=== PATIENT | female | born 1965 | race Hispanic/Latino ===

== ENCOUNTER 2022-05-06 13:01 | Emergency (ER) | payer MEDICAID ==
[~2022-05-06] VITALS: Ht 165.1 cm; Wt 70.3 kg
[2022-05-06 13:06] VITALS: BP 131/74
[2022-05-06] MEDS ORDERED: CETI10TA57 PO (14:26)
== END 2022-05-06 14:53 | disposition home or self-care (01) ==
LOC: EDH 13:01
DX: J02.8 Acute pharyngitis due to other specified organisms (principal); Z20.822 Contact with and (suspected) exposure to COVID-19; Z88.6 Allergy status to analgesic agent
CPT/HCPCS: 99283; 87635; 87880; 87804 ×2; C9803